=== PATIENT | female | born 1985 | race African-American/Black ===

== ENCOUNTER 2025-02-19 12:33 | Emergency (ER) | payer SELFPAY ==
[~2025-02-19] VITALS: Ht 157.5 cm; Wt 95.0 kg
[2025-02-19] MEDS ORDERED: INSULIN REGULAR, HUMAN 100 UNIT/1 ML IV ONE (15:00)
[2025-02-19] MEDS ORDERED: IOPAMIDOL 370 MG/ML 100 ML INFUS..BTL INJ ONE (15:15)
[2025-02-19] MEDS: SODIUM CHLORIDE 0.9% 1000ML 1,000 ML IV ONE (15:38)
[2025-02-19] MEDS: KETOROLAC TROMETHAMINE 30 MG/ML VIAL IV STA (15:39)
[2025-02-19] MEDS ORDERED: ACETAMINOPHEN-1 EAC4 PO (16:43)
[2025-02-19] MEDS ORDERED: CETIRIZINE HCL10 MG PO (16:46)
[2025-02-19 17:09] VITALS: PULSE 92; RESP 16; TEMP 97.4; O2SAT 98
[2025-02-19] MEDS ORDERED: LISINOPRIL10 MG PO (18:13)
[2025-02-19] MEDS ORDERED: HUMULIN R100 UNIT/2 INJ (18:13)
[2025-02-19] MEDS ORDERED: AMLODIPINE BESYL5 MG PO (18:13)
[2025-02-19] MEDS ORDERED: LANTUS 3ML100 UNITS/ SQ (18:13)
== END 2025-02-19 17:09 | disposition home or self-care (01) ==
LOC: FSED 13:39
DX: R10.12 Left upper quadrant pain (principal); E11.65 Type 2 diabetes mellitus with hyperglycemia; R21 Rash and other nonspecific skin eruption; I10 Essential (primary) hypertension
CPT/HCPCS: 36415; 74177; 80053; 80076; 81003; 81025; 82948; 84484; 85025; 93005; 96374; 96375; 99284; J1885; J7030; Q9967